=== PATIENT | male | born 1970 | race Caucasian/White ===

== ENCOUNTER 2018-02-10 05:28 | Emergency (ER) | payer OTHER ==
[~2018-02-10] VITALS: Ht 180.3 cm; Wt 75.8 kg
[2018-02-10 05:59] VITALS: BP 156/100
== END 2018-02-10 07:00 | disposition left against medical advice (07) ==
LOC: ER 05:28
DX: I10 Essential (primary) hypertension (principal); Z53.21 Procedure and treatment not carried out due to patient leaving prior to being seen by health care provider